=== PATIENT | female | born 1980 | race Caucasian/White ===

== ENCOUNTER 2024-07-03 12:02 | Emergency (ER) | payer OTHER ==
[~2024-07-03] VITALS: Ht 167.6 cm; Wt 90.7 kg
[2024-07-03 12:18] VITALS: BP_SYST 110; PULSE 51; RESP 18; TEMP 97.7; O2SAT 96
[2024-07-03] MEDS ORDERED: IBUP-1971 PO (13:56)
[2024-07-03] MEDS: KETOROLAC TROMETHAMINE 60 MG/2 ML VIAL IM ONE (14:06)
[2024-07-03 14:30] VITALS: BP_SYST 110; PULSE 51; RESP 18; TEMP 97.7; O2SAT 96
== END 2024-07-03 14:31 | disposition home or self-care (01) ==
LOC: SED 12:02
DX: S16.1XXA Strain of muscle, fascia and tendon at neck level, initial encounter (principal); S39.012A Strain of muscle, fascia and tendon of lower back, initial encounter; S29.011A Strain of muscle and tendon of front wall of thorax, initial encounter; Z79.899 Other long term (current) drug therapy; V89.2XXA Person injured in unspecified motor-vehicle accident, traffic, initial encounter; Y93.89 Activity, other specified; Y92.89 Other specified places as the place of occurrence of the external cause; Y99.8 Other external cause status
CPT/HCPCS: 99285; 70450; 71045; 93005; 72125; 96372; J1885